=== PATIENT | male | born 1980 ===

== ENCOUNTER 2017-05-11 09:23 | Emergency (ER) | payer OTHER ==
[2017-05-11 09:29] VITALS: BP 133/82; PULSE 99; TEMP 99; O2SAT 97
[2017-05-11 09:30] VITALS: BMI 31.9
[2017-05-11 09:36] VITALS: RESP 20
[2017-05-11] MEDS: Sodium Chloride 0.9% 1,000 ML IV STA (10:15)
[2017-05-11 11:26] LABS: BASO % 0.2 % (0.0-2.0); EOS % 0.4 % (0.0-4.0); HEMOGLOBIN 14.1 g/dL (12.0-18.0); LYMPH # 1.2 K/uL (1.0-4.3); LYMPH % 9.6 % (20.0-40.0); MEAN CORPUSCULAR HGB CONC 32.9 g/dL (33.0-37.0); MEAN PLATELET VOLUME 9.7 fl (7.2-11.7); MONO # 0.5 K/uL (0.0-0.8); MONO % 3.6 % (0.0-10.0); NEUT % 86.2 % (50.0-75.0); NRBC % 0.1 % (0.0-0.0); PLATELET COUNT 185 K/uL (130-400); RBC 5.05 Mil/uL (4.40-5.90); RED CELL DISTRIBUTION WIDTH 13.9 % (11.5-14.5); WHITE BLOOD COUNT 12.7 K/uL (4.8-10.8)
[2017-05-11 11:41] LABS: ALB/GLOB RATIO 1.4 (1.0-2.1); ALBUMIN 4.8 g/dL (3.5-5.0); ALT/SGPT 49 U/L (21-72); AST/SGOT 28 U/L (17-59); BLOOD UREA NITROGEN 16 mg/dl (9-20); CALCIUM 9.4 mg/dL (8.4-10.2); GFR AFRICAN-AMERICAN > 60; GFR NON-AFRICAN AMERICAN > 60
--- NOTE | 2017-05-11 11:45 | ED PDOC ---
HPI: Abdomen Time Seen by Provider: 05/11/17 09:42 Chief Complaint (Nursing): Abdominal Pain Chief Complaint (Provider): Abdominal Pain History Per: Patient History/Exam Limitations: no limitations Onset/Duration Of Symptoms: Days (x2) Location Of Pain/Discomfort: LLQ Additional Complaint(s): Mahin hCen is a 36 year old male with a history of kidney stones that presents to the ED with a chief complaint of LLQ abdominal pain that radiates to the left side of his back that he has been experiencing for the past two days. Patient reports associated dark colored urine and one episode of vomiting , but denies any fever, nausea, constipation, diarrhea, or dysuria. Past Medical History Reviewed: Historical Data, Nursing Documentation, Vital Signs Vital Signs: Last Vital Signs Temp 99 F 05/11/17 09:33 Pulse 99 H 05/11/17 09:33 Resp 20 05/11/17 09:33 BP 133/82 05/11/17 09:33 Pulse Ox 97 05/11/17 12:39 - Medical History PMH: Kidney Stones - Surgical History Surgical History: No Surg Hx - Family History Family History: States: Unknown Family Hx - Home Medications Home Medications: Ambulatory Orders Medication Instructions Recorded Clotrimazole 1% Cream [Lotrimin 1%] 1 appl TOP BID #60 gr 09/08/16 Triamcinolone 0.1% [Triamcinolone 1 appl TOP BID #85 gr 09/08/16 0.1% Cream] Nitrofurantoin Macrocrystals 100 mg PO BID #13 cap 05/11/17 [Macrobid] Tamsulosin [Flomax] 0.4 mg PO DAILY #14 cap 05/11/17 oxyCODONE/Acetaminophen [Percocet 1 tab PO Q6 PRN #20 tab 05/11/17 5/325 mg Tab] - Allergies Allergies/Adverse Reactions: Allergies Allergy/AdvReac Type Severity Reaction Status Date / Time No Known Allergies Allergy Verified 05/11/17 09:33 Review of Systems Constitutional: Negative for: Fever Gastrointestinal: Positive for: Vomiting (x1 episode), Abdominal Pain (LLQ pain that radiates to his back). Negative for: Nausea, Diarrhea, Constipation Genitourinary Male: Positive for: Other (dark colored urine). Negative for: Dysuria Physical Exam - Reviewed Nursing Documentation Reviewed: Yes Vital Signs Reviewed: Yes - Physical Exam Appears: Positive for: Non-toxic, No Acute Distress Head Exam: Positive for: ATRAUMATIC, NORMOCEPHALIC Skin: Positive for: Normal Color, Warm Cardiovascular/Chest: Positive for: Regular Rate, Rhythm. Negative for: Murmur Respiratory: Positive for: Normal Breath Sounds. Negative for: Wheezing Gastrointestinal/Abdominal: Positive for: Soft, Tenderness (LLQ tenderness). Negative for: Normal Exam, Guarding, Rebound Back: Positive for: L CVA Tenderness. Negative for: Normal Inspection, Vertebral Tenderness Extremity: Positive for: Normal ROM Neurologic/Psych: Positive for: Alert, Oriented - Laboratory Results Result Diagrams: 05/11/17 11:00 05/11/17 11:00 - ECG O2 Sat by Pulse Oximetry: 97 (RA) Pulse Ox Interpretation: Normal - Physician Consult Information Time Consulting Physican Contacted: 12:15 Physician Contacted: Rudy Yuan Outcome Of Conversation: Recommends discussion with patient either discharge home with Macrobid, Flomax and Percocet or stent placement. Discussed with patient using FP resident Dr. Ballard as merchandise adjustment clerk. States he wishes to go home to follow-up in office. Medical Decision Making Medical Decision Making: Impression: Nephrolethiasis vs. Pyelonephritis vs. UTI Plan: * CT A/P w/o PO or IV contrast * CMP * CBC * PTT * PT * Urine Dipstick * Urinalysis * Toradol 15 mg IV * Sodium Chloride 1000 mL at 1000 mLs/hr * Reevaluation 12:25 CT Scan A/P w/o PO or IV Contrast FINDINGS: LOWER THORAX: Unremarkable. LIVER: Stable 8 mm low-density lesion inferior right hepatic lobe. No other mass. No biliary dilatation. Smooth contour. GALLBLADDER AND BILE DUCTS: Unremarkable. PANCREAS: Unremarkable. No gross lesion or ductal dilatation. SPLEEN: Unremarkable. ADRENALS: Unremarkable. No mass. KIDNEYS AND URETERS: Right upper pole low-density mass, 2.8 cm, with minimal curvilinear mural calcification. This has increased in size from prior CT examination of 2011. Correlation with ultrasound examination is advised. Mild left hydroureteronephrosis. Obstructing 6 mm calculus at left ureterovesical junction. No right hydronephrosis. No renal calculus. VASCULATURE: Unremarkable. No aortic aneurysm. BOWEL: Diverticulosis of the transverse colon without evidence of diverticulitis. No bowel obstruction. No other abnormal bowel loops are identified. APPENDIX: Unremarkable. Normal appendix. PERITONEUM: Unremarkable. No free fluid. No free air. LYMPH NODES: Unremarkable. No enlarged lymph nodes. BLADDER: Unremarkable. REPRODUCTIVE: Normal prostate BONES: No acute fracture. OTHER FINDINGS: None. IMPRESSION: Obstructing 6 mm calculus at left ureterovesical junction. Mild right left hydroureteronephrosis. Mild interval enlargement of right upper pole renal cyst compared to 12/20 with mild curvilinear mural calcification. Probable 10 mm cortical cyst upper pole right kidney. Not evident on prior examination. Recommend correlation with renal ultrasound. Referred patient to Dr. Yuan. Gave Rx for Macrobid, Percocet, and Flomax. Patient is stable for discharge home. Clinical Impression: Ureteral Calculus Scribe Attestation: Documented by Cindy Duron, acting as a scribe for Cinthya Knight MD. Provider Scribe Attestation: All medical record entries made by the Scribe were at my direction and personally dictated by me. I have reviewed the chart and agree that the record accurately reflects my personal performance of the history, physical exam, medical decision making, and the department course for this patient. I have also personally directed, reviewed, and agree with the discharge instructions and disposition. Disposition - Clinical Impression Clinical Impression: Ureteral calculus - Patient ED Disposition Is Patient to be Admitted: No - Disposition Referrals: Rudy Yuan MD [Medical Doctor] - Disposition: Routine/Home Disposition Time: 12:28 Condition: IMPROVED Additional Instructions: SEGUIMIENTO CON EL DR. RENETTA BLUTN. Prescriptions: Nitrofurantoin Macrocrystals [Macrobid] 100 mg PO BID #13 cap oxyCODONE/Acetaminophen [Percocet 5/325 mg Tab] 1 tab PO Q6 PRN #20 tab PRN Reason: Pain, Moderate (4-7) Tamsulosin [Flomax] 0.4 mg PO DAILY #14 cap Instructions: Renal Colic (ED), Ureteral Stones (ED) Print Language: GERMAN
[2017-05-11 11:46] LABS: PARTIAL THROMBOPLASTIN TIME 31.2 Seconds (25.6-37.1); PROTHROMBIN TIME 11.1 Seconds (9.8-13.1)
[2017-05-11 11:55] LABS: URINE BACTERIA RARE (<OCC); URINE BILIRUBIN NEGATIVE (NEGATIVE); URINE BLOOD LARGE (NEGATIVE); URINE CLARITY SLIGHTY-CLOUDY (Clear); URINE COLOR YELLOW (YELLOW); URINE GLUCOSE (UA) NEG (Normal); URINE LEUKOCYTE ESTERASE NEG Leu/uL (Negative); URINE NITRATE NEGATIVE (NEGATIVE); URINE PROTEIN 30 mg/dL (NEGATIVE); URINE UROBILINOGEN 0.2-1.0 mg/dL (0.2-1.0)
--- NOTE | 2017-05-11 12:05 | CT ---
PROCEDURE: CT Abdomen and Pelvis without intravenous contrast HISTORY: L flank pain, hematuria COMPARISON: 12/24/2011 TECHNIQUE: Without contrast.. Contrast Dose: 0 Radiation dose: Total exam DLP = 976.67 mGy-cm. This CT exam was performed using one or more of the following dose reduction techniques: Automated exposure control, adjustment of the mA and/or kV according to patient size, and/or use of iterative reconstruction technique. FINDINGS: LOWER THORAX: Unremarkable. LIVER: Stable 8 mm low-density lesion inferior right hepatic lobe. No other mass. No biliary dilatation. Smooth contour. GALLBLADDER AND BILE DUCTS: Unremarkable. PANCREAS: Unremarkable. No gross lesion or ductal dilatation. SPLEEN: Unremarkable. ADRENALS: Unremarkable. No mass. KIDNEYS AND URETERS: Right upper pole low-density mass, 2.8 cm, with minimal curvilinear mural calcification. This has increased in size from prior CT examination of 12/24/2011. Correlation with ultrasound examination is advised. Mild left hydroureteronephrosis. Obstructing 6 mm calculus at left ureterovesical junction. No right hydronephrosis. No renal calculus. VASCULATURE: Unremarkable. No aortic aneurysm. BOWEL: Diverticulosis of the transverse colon without evidence of diverticulitis. No bowel obstruction. No other abnormal bowel loops are identified. APPENDIX: Unremarkable. Normal appendix. PERITONEUM: Unremarkable. No free fluid. No free air. LYMPH NODES: Unremarkable. No enlarged lymph nodes. BLADDER: Unremarkable. REPRODUCTIVE: Normal prostate BONES: No acute fracture. OTHER FINDINGS: None. IMPRESSION: Obstructing 6 mm calculus at left ureterovesical junction. Mild right left hydroureteronephrosis. Mild interval enlargement of right upper pole renal cyst compared to 12/20 with mild curvilinear mural calcification. Probable 10 mm cortical cyst upper pole right kidney. Not evident on prior examination. Recommend correlation with renal ultrasound.
[2017-05-11 12:46] LABS: LYMPHOCYTE 6 % (20-50); MONOCYTE 4 % (0-10); NEUTROPHIL 90 % (42-75); PLATELET ESTIMATE NORMAL (NORMAL); TOTAL CELLS COUNTED 100
== END 2017-05-11 13:10 | disposition home or self-care (01) ==
LOC: H.ER 09:23
DX: N20.1 Calculus of ureter (principal); N13.2 Hydronephrosis with renal and ureteral calculous obstruction